=== PATIENT | male | born 1960 | race African-American/Black ===

== ENCOUNTER 2017-08-01 16:23 | Inpatient (IN) | payer OTHER ==
[2017-08-01] MEDS ORDERED: P-EPHED 60MG/TRIPROLIDI 2.5MG TABLET PO PRN (18:22)
[2017-08-01] MEDS ORDERED: MAGNESIUM CITRATE 300 ML BOTTLE PO PRN (18:22)
[2017-08-01] MEDS ORDERED: MENTHOL/PHENOL 1 EACH UD MM PRN (18:22)
[2017-08-01] MEDS ORDERED: NICOTINE POLACRILEX 2 MG GUM BC PRN (18:22)
[2017-08-01] MEDS ORDERED: MAG HYDROX/AL HYDROX/SIMETH 30 ML UNIT-DOSE CUP PO PRN (18:22)
[2017-08-01] MEDS ORDERED: MAGNESIUM HYDROX 2400MG/30ML ORAL SUSPENSION 30 ML CUP PO PRN (18:22)
[2017-08-01] MEDS ORDERED: guaiFENesin/D-METHORPHAN HB 10 ML UNIT-DOSE CUPS PO PRN (18:22)
[2017-08-01] MEDS ORDERED: chlordiazePOXIDE HCL 25 MG CAPSULE PO PRN (18:22)
[2017-08-01] MEDS ORDERED: LOPERAMIDE HCL 2 MG CAPSULE PO PRN (18:22)
[2017-08-01] MEDS ORDERED: chlordiazePOXIDE HCL 25 MG CAPSULE PO ONE (18:22)
[2017-08-01 18:25] VITALS: BMI 26.5
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
[2017-08-01] MEDS: SULFAMETHOXAZOLE/TRIMETHOPRIM 800MG/160MG D.S. TABLET PO SCH ×2 (20:57→22:17)
[2017-08-01] MEDS: NICOTINE 7 MG/24 HOURS TOPICAL PATCH TD SCH (20:57)
[2017-08-01] MEDS: THIAMINE HCL 100 MG TABLET (FP) PO SCH (22:16)
[2017-08-01] MEDS: chlordiazePOXIDE HCL 25 MG CAPSULE PO SCH (22:17)
[2017-08-01] MEDS: hydrOXYzine PAMOATE 50 MG CAPSULE (FP) PO PRN (22:17)
[2017-08-01 22:58] LABS: URINE APPEARANCE SLCLOUDY; URINE BILIRUBIN NEGATIVE (NEGATIVE); URINE BLOOD NEGATIVE (NEGATIVE); URINE COLOR DKYELLOW; URINE GLUCOSE (UA) NEGATIVE (NEGATIVE); URINE KETONE 1+ (NEGATIVE); URINE NITRITE NEGATIVE (NEGATIVE); URINE PROTEIN NEGATIVE (NEGATIVE); URINE UROBILINOGEN 4.0 E.U/dl mg/dL (0.2-1.0)
[2017-08-02] MEDS: hydrOXYzine PAMOATE 50 MG CAPSULE (FP) PO PRN (03:50)
[2017-08-02] MEDS: chlordiazePOXIDE HCL 25 MG CAPSULE PO SCH ×4 (06:00→22:38)
[2017-08-02] MEDS ORDERED: METHADONE HCL 10 MG TABLET PO SCH (07:30)
[2017-08-02] MEDS ORDERED: METHADONE HCL 10 MG TABLET ONE (08:00)
[2017-08-02] MEDS ORDERED: METHADONE HCL 40 MG DISPERSABLE TABLET ONE (08:01)
[2017-08-02] MEDS: METHADONE 80 MG, METHADONE 10 MG PO SCH (08:02)
[2017-08-02] MEDS ORDERED: BACITRACIN 15 GM TUBE TOPICAL OINTMENT TP SCH (10:00)
[2017-08-02 10:02] LABS: MCH 28.2 pg (25.7-33.7); MEAN CELL VOLUME 85.7 fl (80-96); MEAN PLT VOLUME 7.7 fl (7.5-11.1); PLATELET COUNT 255 K/MM3 (134-434); RDW 13.6 % (11.9-15.9); WHITE BLOOD COUNT 9.3 K/mm3 (4.0-10.0)
[2017-08-02] MEDS: NICOTINE 7 MG/24 HOURS TOPICAL PATCH TD SCH (10:17)
[2017-08-02] MEDS: SULFAMETHOXAZOLE/TRIMETHOPRIM 800MG/160MG D.S. TABLET PO SCH ×2 (10:17→22:38)
[2017-08-02] MEDS: BACITRACIN 0.9 GM PACKET TP SCH (10:17)
[2017-08-02] MEDS: PRENATAL VITAMINS W/ FOLIC ACID TABLET (FP) PO SCH (10:17)
[2017-08-02] MEDS: ACETAMINOPHEN 325 MG TABLET (FP) PO PRN ×2 (10:19→20:13)
[2017-08-02 10:22] LABS: ALBUMIN 3.2 g/dl (3.4-5.0); ALK PHOS 74 U/L (45-117); ANION GAP 4 (8-16); BILIRUBIN,TOTAL 0.6 mg/dL (0.2-1.0); CALCIUM 8.2 mg/dL (8.5-10.1); CO2 29 mmol/L (21-32); CREATININE 0.8 mg/dL (0.7-1.3); GLUCOSE,RANDOM 94 mg/dL (74-106); SGOT/AST 19 U/L (15-37); SGPT/ALT 26 U/L (12-78); TOT PROT 7.3 g/dl (6.4-8.2)
[2017-08-02 10:44] LABS: URINE LEUK ESTERASE Negative (NEGATIVE)
--- NOTE | 2017-08-02 12:46 | PN ---
[facility] CIWA - CIWA Score Nausea/Vomitin-No Nausea/No Vomiting Muscle Tremors: 4-Moderate,w/Arms Extend Anxiety: 4-Mod. Anxious/Guarded Agitation: 4-Moderately Restless Paroxysmal Sweats: No Perspiration Orientation: 0-Oriented Tacttile Disturbances: 3-Moderate Itch/Numb/Burn Auditory Disturbances: 0-None Visual Disturbances: 2-Mild Sensitivity Headache: 0-None Present CIWA-Ar Total Score: 17 S Progress Note (SOAP) Subjective: Anxious, Tremors, Body Aches, Interrupted Sleep. Objective: PT. A & O X 3, OBSERVED AMBULATING ON UNIT. NO ACUTE DISTRESS. 08/02/17 12:42 Vital Signs Temperature 98.2 F 08/02/17 09:43 Pulse Rate 77 08/02/17 09:43 Respiratory Rate 18 08/02/17 09:43 Blood Pressure 154/88 08/02/17 09:43 O2 Sat by Pulse Oximetry (%) Laboratory Tests 08/01/17 08/02/17 08/02/17 18:00 07:00 07:00 WBC 9.3 RBC 4.32 Hgb 12.2 Hct 37.0 MCV 85.7 MCH 28.2 MCHC 33.0 RDW 13.6 Plt Count 255 MPV 7.7 Sodium 138 Potassium 3.8 Chloride 105 Carbon Dioxide 29 Anion Gap 4 L BUN 10 Creatinine 0.8 Creat Clearance w eGFR > 60 Random Glucose 94 Calcium 8.2 L Total Bilirubin 0.6 AST 19 ALT 26 Alkaline Phosphatase 74 Total Protein 7.3 Albumin 3.2 L Urine Color Dkyellow Urine Appearance Slcloudy Urine pH 6.0 Ur Specific [place] 1.028 Urine Protein Negative Urine Glucose (UA) Negative Urine Ketones 1+ H Urine Blood Negative Urine Nitrite Negative Urine Bilirubin Negative Urine Urobilinogen 4.0 e.u/dl Ur Leukocyte Esterase Negative RPR Titer 08/02/17 07:00 WBC RBC Hgb Hct MCV MCH MCHC RDW Plt Count MPV Sodium Potassium Chloride Carbon Dioxide Anion Gap BUN Creatinine Creat Clearance w eGFR Random Glucose Calcium Total Bilirubin AST ALT Alkaline Phosphatase Total Protein Albumin Urine Color Urine Appearance Urine pH Ur Specific [place] Urine Protein Urine Glucose (UA) Urine Ketones Urine Blood Urine Nitrite Urine Bilirubin Urine Urobilinogen Ur Leukocyte Esterase RPR Titer Nonreactive LABS NOTED. HCV AB RESULT PENDING. 08/02/17 12:46 Assessment: 08/02/17 12:43 WITHDRAWAL SYMPTOMS. Plan: CONTINUE DETOX. CONTINUE WOUND CARE DIRECTED FOR BILATERAL FEET. BACITRACIN TO BE APPLIED TO WOUND ON BILATERAL HANDS AND COVERED WITH GAUZE. INCREASE DAILY PO FLUID INTAKE.
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
--- NOTE | 2017-08-02 16:10 | EKG ---
Test Reason : Blood Pressure : / mmHG Vent. Rate : 067 BPM Atrial Rate : 067 BPM P-R Int : 188 ms QRS Dur : 078 ms QT Int : 382 ms P-R-T Axes : 061 056 055 degrees QTc Int : 403 ms NORMAL SINUS RHYTHM POSSIBLE LEFT ATRIAL ENLARGEMENT SEPTAL INFARCT , AGE UNDETERMINED ABNORMAL ECG NO PREVIOUS ECGS AVAILABLE Confirmed by TING WONG MD ([id number]) on 08/02/2017 4:10:19 PM Referred By: Cordell Suazo Confirmed By:TING WONG MD
[2017-08-02] MEDS: IBUPROFEN 400 MG TABLET (FP) PO PRN (16:38)
[2017-08-02] MEDS: QUEtiapine FUMARATE 200 MG TABLET PO SCH (22:38)
[2017-08-02] MEDS: THIAMINE HCL 100 MG TABLET (FP) PO SCH (22:38)
[2017-08-03] MEDS ORDERED: METHADONE HCL 40 MG DISPERSABLE TABLET ONE (02:50)
[2017-08-03] MEDS ORDERED: METHADONE HCL 10 MG TABLET ONE (02:50)
[2017-08-03] MEDS: IBUPROFEN 400 MG TABLET (FP) PO PRN ×3 (04:28→21:31)
[2017-08-03] MEDS: METHADONE 80 MG, METHADONE 10 MG PO SCH (05:45)
[2017-08-03] MEDS: chlordiazePOXIDE HCL 25 MG CAPSULE PO SCH ×3 (05:45→16:57)
[2017-08-03] MEDS: NICOTINE 7 MG/24 HOURS TOPICAL PATCH TD SCH (10:01)
[2017-08-03] MEDS: PRENATAL VITAMINS W/ FOLIC ACID TABLET (FP) PO SCH (10:01)
[2017-08-03] MEDS: SULFAMETHOXAZOLE/TRIMETHOPRIM 800MG/160MG D.S. TABLET PO SCH ×2 (10:01→22:01)
[2017-08-03] MEDS: BACITRACIN 0.9 GM PACKET TP SCH (10:01)
[2017-08-03] MEDS: ACETAMINOPHEN 325 MG TABLET (FP) PO PRN ×2 (11:44→18:31)
--- NOTE | 2017-08-03 13:11 | PN ---
[facility] CIWA - CIWA Score Nausea/Vomitin-No Nausea/No Vomiting Muscle Tremors: 3 Anxiety: 4-Mod. Anxious/Guarded Agitation: 3 Paroxysmal Sweats: 3 Orientation: 0-Oriented Tacttile Disturbances: 3-Moderate Itch/Numb/Burn Auditory Disturbances: 2-Mild Harshness/Frighten Visual Disturbances: 0-None Headache: 0-None Present CIWA-Ar Total Score: 18 BHS Progress Note (SOAP) Subjective: Interrupted Sleep, Body Aches, Sweating, Anxious. Objective: PT. A & O X 3, OBSERVED AMBULATING ON UNIT. NO ACUTE DISTRESS. 08/03/17 13:09 Vital Signs Temperature 97.9 F 08/03/17 09:43 Pulse Rate 84 08/03/17 09:43 Respiratory Rate 16 08/03/17 09:43 Blood Pressure 100/69 08/03/17 09:43 O2 Sat by Pulse Oximetry (%) Laboratory Tests 08/01/17 08/01/17 08/02/17 07:00 18:00 07:00 WBC 9.3 RBC 4.32 Hgb 12.2 Hct 37.0 MCV 85.7 MCH 28.2 MCHC 33.0 RDW 13.6 Plt Count 255 MPV 7.7 Sodium Potassium Chloride Carbon Dioxide Anion Gap BUN Creatinine Creat Clearance w eGFR Random Glucose Calcium Total Bilirubin AST ALT Alkaline Phosphatase Total Protein Albumin Urine Color Dkyellow Urine Appearance Slcloudy Urine pH 6.0 Ur Specific [place] 1.028 Urine Protein Negative Urine Glucose (UA) Negative Urine Ketones 1+ H Urine Blood Negative Urine Nitrite Negative Urine Bilirubin Negative Urine Urobilinogen 4.0 e.u/dl Ur Leukocyte Esterase Negative RPR Titer Hepatitis C Antibody <0.1 08/02/17 08/02/17 07:00 07:00 WBC RBC Hgb Hct MCV MCH MCHC RDW Plt Count MPV Sodium 138 Potassium 3.8 Chloride 105 Carbon Dioxide 29 Anion Gap 4 L BUN 10 Creatinine 0.8 Creat Clearance w eGFR > 60 Random Glucose 94 Calcium 8.2 L Total Bilirubin 0.6 AST 19 ALT 26 Alkaline Phosphatase 74 Total Protein 7.3 Albumin 3.2 L Urine Color Urine Appearance Urine pH Ur Specific [place] Urine Protein Urine Glucose (UA) Urine Ketones Urine Blood Urine Nitrite Urine Bilirubin Urine Urobilinogen Ur Leukocyte Esterase RPR Titer Nonreactive Hepatitis C Antibody LABS NOTED. Assessment: 08/03/17 13:10 WITHDRAWAL SYMPTOMS. Plan: CONTINUE DETOX. CONTINUE WOUND CARE ON BILATERAL HANDS AND FEET DIRECTED. INCREASE DAILY PO FLUID INTAKE.
[2017-08-03] MEDS: QUEtiapine FUMARATE 200 MG TABLET PO SCH (22:01)
[2017-08-03] MEDS: THIAMINE HCL 100 MG TABLET (FP) PO SCH (22:01)
[2017-08-03] MEDS: chlordiazePOXIDE 5 MG CAPSULE PO SCH (22:01)
[2017-08-03] MEDS: hydrOXYzine PAMOATE 50 MG CAPSULE (FP) PO PRN (22:02)
[2017-08-04] MEDS ORDERED: METHADONE HCL 10 MG TABLET ONE (04:48)
[2017-08-04] MEDS ORDERED: METHADONE HCL 40 MG DISPERSABLE TABLET ONE (04:48)
[2017-08-04] MEDS: chlordiazePOXIDE 5 MG CAPSULE PO SCH ×3 (05:51→17:30)
[2017-08-04] MEDS: METHADONE 80 MG, METHADONE 10 MG PO SCH (05:51)
[2017-08-04] MEDS: ACETAMINOPHEN 325 MG TABLET (FP) PO PRN (05:52)
[2017-08-04] MEDS: IBUPROFEN 400 MG TABLET (FP) PO PRN (08:19)
[2017-08-04] MEDS: ALBUTEROL SO4 18 GM HFA INHALER IH PRN ×2 (09:00→19:54)
[2017-08-04] MEDS: PRENATAL VITAMINS W/ FOLIC ACID TABLET (FP) PO SCH (10:08)
[2017-08-04] MEDS: NICOTINE 7 MG/24 HOURS TOPICAL PATCH TD SCH (10:08)
[2017-08-04] MEDS: SULFAMETHOXAZOLE/TRIMETHOPRIM 800MG/160MG D.S. TABLET PO SCH ×2 (10:08→22:12)
[2017-08-04] MEDS: BACITRACIN 0.9 GM PACKET TP SCH (10:08)
[2017-08-04] MEDS ORDERED: BACITRACIN 0.9 GM PACKET TP SCH (10:24)
[2017-08-04] MEDS: AMMONIUM LACTATE 12% LOTION 225 GM BOTTLE TP SCH ×2 (11:41→22:14)
--- NOTE | 2017-08-04 12:19 | PN ---
BHS Progress Note (SOAP) Subjective: Anxious, Sweating, Interrupted Sleep. Objective: PT. A & O X 3, OBSERVED AMBULATING ON UNIT WITH ASSISTANCE OF A CANE. NO ACUTE DISTRESS. 08/04/17 12:17 Vital Signs Temperature 98 F 08/04/17 08:56 Pulse Rate 92 H 08/04/17 08:56 Respiratory Rate 18 08/04/17 08:56 Blood Pressure 111/64 08/04/17 08:56 O2 Sat by Pulse Oximetry (%) Laboratory Tests 08/01/17 08/01/17 08/02/17 07:00 18:00 07:00 WBC 9.3 RBC 4.32 Hgb 12.2 Hct 37.0 MCV 85.7 MCH 28.2 MCHC 33.0 RDW 13.6 Plt Count 255 MPV 7.7 Sodium Potassium Chloride Carbon Dioxide Anion Gap BUN Creatinine Creat Clearance w eGFR Random Glucose Calcium Total Bilirubin AST ALT Alkaline Phosphatase Total Protein Albumin Urine Color Dkyellow Urine Appearance Slcloudy Urine pH 6.0 Ur Specific [place] 1.028 Urine Protein Negative Urine Glucose (UA) Negative Urine Ketones 1+ H Urine Blood Negative Urine Nitrite Negative Urine Bilirubin Negative Urine Urobilinogen 4.0 e.u/dl Ur Leukocyte Esterase Negative RPR Titer Hepatitis C Antibody <0.1 08/02/17 08/02/17 07:00 07:00 WBC RBC Hgb Hct MCV MCH MCHC RDW Plt Count MPV Sodium 138 Potassium 3.8 Chloride 105 Carbon Dioxide 29 Anion Gap 4 L BUN 10 Creatinine 0.8 Creat Clearance w eGFR > 60 Random Glucose 94 Calcium 8.2 L Total Bilirubin 0.6 AST 19 ALT 26 Alkaline Phosphatase 74 Total Protein 7.3 Albumin 3.2 L Urine Color Urine Appearance Urine pH Ur Specific [place] Urine Protein Urine Glucose (UA) Urine Ketones Urine Blood Urine Nitrite Urine Bilirubin Urine Urobilinogen Ur Leukocyte Esterase RPR Titer Nonreactive Hepatitis C Antibody LABS NOTED. Assessment: 08/04/17 12:18 WITHDRAWAL SYMPTOMS. Plan: CONTINUE DETOX. CONTINUE WOUND CARE ON BILATERAL HANDS AND FEET DIRECTED. INCREASE DAILY PO FLUID INTAKE.
[2017-08-04] MEDS: THIAMINE HCL 100 MG TABLET (FP) PO SCH (22:11)
[2017-08-04] MEDS: QUEtiapine FUMARATE 200 MG TABLET PO SCH (22:12)
[2017-08-04] MEDS: chlordiazePOXIDE HCL 10 MG CAPSULE PO SCH (22:12)
[2017-08-05] MEDS: IBUPROFEN 400 MG TABLET (FP) PO PRN (03:27)
[2017-08-05] MEDS ORDERED: METHADONE HCL 40 MG DISPERSABLE TABLET ONE (04:48)
[2017-08-05] MEDS ORDERED: METHADONE HCL 10 MG TABLET ONE (04:48)
[2017-08-05] MEDS: METHADONE 80 MG, METHADONE 10 MG PO SCH (05:14)
[2017-08-05] MEDS: chlordiazePOXIDE HCL 10 MG CAPSULE PO SCH (05:15)
[2017-08-05] MEDS: ACETAMINOPHEN 325 MG TABLET (FP) PO PRN (07:54)
[2017-08-05] MEDS: ALBUTEROL SO4 18 GM HFA INHALER IH PRN (08:51)
[2017-08-05] MEDS: PRENATAL VITAMINS W/ FOLIC ACID TABLET (FP) PO SCH (09:02)
[2017-08-05] MEDS: SULFAMETHOXAZOLE/TRIMETHOPRIM 800MG/160MG D.S. TABLET PO SCH (09:02)
[2017-08-05 09:14] VITALS: BP 97/57; PULSE 82; TEMP 97.5
--- NOTE | 2017-08-05 20:20 | DS ---
[facility] Detox Discharge Summary Admission Date: 08/01/17 Discharge Date: 08/05/17 - History Present History: Cannabis Dependence, Opioid Dependence, MMTP Additional Comments: PATIENT GOING HOME. PATIENT ADVISED TO FOLLOW-UP WITH MEDICAL PROVIDER AT [facility] ([place], [place] FOR MEDICAL EVALUATION AND FOR FOLLOW- UP CARE OF WOUNDS ON BILATERAL HANDS AND BILATERAL FEET. PRESCRIPTIONS FOR FOLLOW-UP MEDICATIONS SENT TO PATIENT'S PHARMACY. PATIENT ALSO ADVISED TO CONSIDER LOCAL 12-STEP / NA / AA OUTPATIENT SUPPORT GROUP FOR AFTERCARE. PATIENT WAS DISCHARGED FROM DETOX UNIT IN STABLE MEDICAL CONDITION. Pertinent Past History: Asthma, Nicotine Dependence, Wounds on Bilateral Hands and Bilateral Feet, Depression, Bipolar Disorder, MMTP, Insomnia. - Physical Exam Results Vital Signs: Vital Signs Temperature 97.5 F L 08/05/17 09:13 Pulse Rate 82 08/05/17 09:13 Respiratory Rate 18 08/05/17 09:13 Blood Pressure 97/57 08/05/17 09:13 O2 Sat by Pulse Oximetry (%) Pertinent Admission Physical Exam Findings: WITHDRAWAL SYMPTOMS. Laboratory Tests 08/01/17 08/01/17 08/02/17 07:00 18:00 07:00 WBC 9.3 RBC 4.32 Hgb 12.2 Hct 37.0 MCV 85.7 MCH 28.2 MCHC 33.0 RDW 13.6 Plt Count 255 MPV 7.7 Sodium Potassium Chloride Carbon Dioxide Anion Gap BUN Creatinine Creat Clearance w eGFR Random Glucose Calcium Total Bilirubin AST ALT Alkaline Phosphatase Total Protein Albumin Urine Color Dkyellow Urine Appearance Slcloudy Urine pH 6.0 Ur Specific [place] 1.028 Urine Protein Negative Urine Glucose (UA) Negative Urine Ketones 1+ H Urine Blood Negative Urine Nitrite Negative Urine Bilirubin Negative Urine Urobilinogen 4.0 e.u/dl Ur Leukocyte Esterase Negative RPR Titer Hepatitis C Antibody <0.1 08/02/17 08/02/17 07:00 07:00 WBC RBC Hgb Hct MCV MCH MCHC RDW Plt Count MPV Sodium 138 Potassium 3.8 Chloride 105 Carbon Dioxide 29 Anion Gap 4 L BUN 10 Creatinine 0.8 Creat Clearance w eGFR > 60 Random Glucose 94 Calcium 8.2 L Total Bilirubin 0.6 AST 19 ALT 26 Alkaline Phosphatase 74 Total Protein 7.3 Albumin 3.2 L Urine Color Urine Appearance Urine pH Ur Specific [place] Urine Protein Urine Glucose (UA) Urine Ketones Urine Blood Urine Nitrite Urine Bilirubin Urine Urobilinogen Ur Leukocyte Esterase RPR Titer Nonreactive Hepatitis C Antibody LABS NOTED. - Treatment Hospital Course: Detox Protocol Followed, Detoxed Safely, Responded well, Discharged Condition Good Patient has Accepted a Rehab Referral to: PT GOING HOME, ADVISED TO CONSIDER LOCAL 12-STEP/NA/AA SUPPORT GROUPS. - Medication Discharge Medications: Ambulatory Orders Quetiapine Fumarate [Seroquel -] 600 mg PO HS 08/01/17 Albuterol Sulfate Inhaler - [Ventolin Hfa Inhaler -] 1 - 2 inh PO Q4H #1 inhaler 08/04/17 Bacitracin - [Bacitracin Topical Ointment -] 1 applic TP BID #1 tube 08/04/17 Sulfamethoxazole/Trimethoprim [Bactrim Ds -] 1 tab PO BID 7 Days #14 tablet 02/13 - Diagnosis (1) Alcohol dependence with uncomplicated withdrawal Status: Acute (2) Opioid dependence on agonist therapy Status: Chronic (3) Cannabis dependence Status: Acute (4) Insomnia Status: Acute Qualifiers: Insomnia type: unspecified Qualified Code(s): G47.00 - Insomnia, unspecified (5) Nicotine dependence Status: Acute Qualifiers: Nicotine product type: cigarettes Substance use status: uncomplicated Qualified Code(s): F17.210 - Nicotine dependence, cigarettes, uncomplicated (6) Open wound of foot Status: Acute Qualifiers: Encounter type: initial encounter Laterality: unspecified laterality Qualified Code(s): S91.309A - Unspecified open wound, unspecified foot, initial encounter (7) Substance induced mood disorder Status: Acute (8) Bipolar disorder Status: Chronic Qualifiers: Active/Remission status: remission status unspecified Qualified Code(s): F31.9 - Bipolar disorder, unspecified - AMA Did Patient Leave Against Medical Advice: No
== END 2017-08-05 10:16 | disposition home or self-care (01) | DRG 773 ==
LOC: YASAS 16:23 → Y3N 19:00
PROVIDERS: ADMIT Internal Medicine; ATTEND Internal Medicine
PROC: HZ2ZZZZ Detoxification Services for Substance Abuse Treatment (ICD-10-PCS; principal; 2017-08-01)
DX: F11.20 Opioid dependence, uncomplicated (principal); F10.230 Alcohol dependence with withdrawal, uncomplicated; F19.24 Other psychoactive substance dependence with psychoactive substance-induced mood disorder; F31.9 Bipolar disorder, unspecified; G47.00 Insomnia, unspecified; S91.302A Unspecified open wound, left foot, initial encounter; S91.301A Unspecified open wound, right foot, initial encounter; X58.XXXA Exposure to other specified factors, initial encounter; Y93.89 Activity, other specified; Y92.9 Unspecified place or not applicable; Y99.8 Other external cause status; R26.89 Other abnormalities of gait and mobility; Z99.89 Dependence on other enabling machines and devices; Z59.0 Homelessness
CPT/HCPCS: 36415; 73630-TC-LT; 73630-TC-RT; 80053; 81003; 85027; 86593; 86803; 93005; 93010